=== PATIENT | female | born 1975 | race Hispanic/Latino ===

== ENCOUNTER 2017-05-04 16:56 | Inpatient (IN) | payer SELFPAY ==
[2017-05-04] MEDS ORDERED: ONDANSETRON HCL 4 MG/2 ML VIAL ONE (17:41)
[2017-05-04] MEDS ORDERED: INSULIN HUMULIN R 100 UNIT/ML 3ML ONE ×2 (18:19→19:51)
[2017-05-04 18:21] LABS: APPEARANCE,URINE Clear (CLEAR); BILIRUBIN,URINE Negative (NEGATIVE); COLOR,URINE Yellow (YELLOW); GLUCOSE, URINE (UA) >=1000 mg/dL (NEGATIVE); KETONES,URINE >=160 mg/dL (NEGATIVE); LEUKOCYTE ESTERASE ,URINE Negative (NEGATIVE); NITRATE,URINE Negative (NEGATIVE); OCCULT BLOOD,URINE Trace (NEGATIVE); PROTEIN,URINE POS 2+ (NEGATIVE); UROBILINOGEN,URINE 0.2 mg/dL (0.2-1.0)
[2017-05-04 18:28] LABS: HCG,QUAL RESULT NEGATIVE (NEGATIVE)
[2017-05-04 18:29] LABS: AMPHET/METH SCREEN,URINE NEGATIVE (NEGATIVE); BARBITURATE SCREEN, URINE NEGATIVE (NEGATIVE); BENZODIAZEPINES SCREEN,URINE NEGATIVE (NEGATIVE); CANNABINOID SCREEN,URINE NEGATIVE (NEGATIVE); COCAINE SCREEN,URINE NEGATIVE (NEGATIVE); OPIATE SCREEN,URINE NEGATIVE (NEGATIVE); PHENCYCLIDINE SCREEN,URINE NEGATIVE (NEGATIVE)
[2017-05-04 18:36] LABS: HEMATOCRIT 51.4 % (36-48); MEAN CORPUSCULAR HEMOGLOBIN 28.6 pg (27.0-33.0); MEAN CORPUSCULAR HGB CONC 32.4 g/dL (32.0-36.0); MEAN CORPUSCULAR VOLUME 88.2 fL (79-99); PLATELET COUNT (AUTO) 397 K/uL (130-400); RED BLOOD CELL COUNT(AUTO) 5.82 MIL/uL (4.00-5.50); RED CELL DISTRIBUTION WIDTH 13.2 % (11.0-15.5); WHITE BLOOD COUNT (AUTO) 23.4 K/uL (4.8-10.8)
[2017-05-04 19:53] LABS: BAND NEUTROPHILS % (MANUAL) 16 % (0-2); LYMPHOCYTES % (MANUAL) 8 % (22-44); MAN.DIFF COMMENT-IMPRESSION MANUAL DIFFERENTIAL; SEGMENTED NEUTROPHILS % 76 % (40-70)
[2017-05-04 20:01] LABS: BACTERIA,URINE Rare /HPF (None Seen); RBC,URINE 0-1 /HPF (0-1); WBC,URINE 0-1 /HPF (0-1); YEAST,URINE BUDDING Few /HPF (None Seen)
[2017-05-04 20:02] LABS: SQUAMOUS EPITHELIAL CELL,UR Few /LPF (0-2)
[2017-05-04 20:04] LABS: ABG BASE EXCESS -29.3 mmol/L (-2.0-3.0); ABG HCO3 2.8 mmol/L (21.0-28.0); ABG OXYGEN SATURATION 96.2 % (95.0-99.0); ABG PCO2 < 18 mmHg (32-45)
[2017-05-04] MEDS ORDERED: SODIUM BICARB 50MEQ 50ML VIAL ONE (20:11)
[2017-05-04 20:22] LABS: ALANINE AMINOTRANSFERASE 22 U/L (12-78); ALBUMIN 4.2 g/dL (3.5-5.0); AMYLASE 21 U/L (25-115); ASPARTATE AMINOTRANSFERASE 17 U/L (10-37); BILIRUBIN,TOTAL 0.4 mg/dL (0.2-1.0); CHLORIDE 102 mmol/L (101-111); CREATINE KINASE MB < 0.5 ng/mL (0.5-3.6); CREATINE KINASE, TOTAL 24 U/L (21-232); CREATININE 1.3 mg/dL (0.5-1.5); GLOMERULAR FILTR. RATE CALC 48 mL/min (>60); LIPASE 158 U/L (114-286); POTASSIUM 5.1 mmol/L (3.5-5.1); SODIUM SERUM 138 mmol/L (136-145); TOTAL PROTEIN, SERUM 8.7 g/dL (6.0-8.3); UREA NITROGEN, BLOOD 23 mg/dL (7-18)
[2017-05-04 20:25] LABS: CARBON DIOXIDE 7 mmol/L (21-32); GLUCOSE,RANDOM 416 mg/dL (70-105)
[2017-05-04] MEDS ORDERED: DEXTROSE 50%-WATER 50 ML DISP.SYRIN IV PRN (21:45)
[2017-05-04] MEDS ORDERED: INSULIN IV SS1 SQ PRN ×2 (21:45)
[2017-05-04] MEDS ORDERED: GLUCAGON 1MG KIT 1 MG ML IM PRN (21:45)
[2017-05-04] MEDS ORDERED: ACETAMINOPHEN-CODEINE 300/30MG TAB ONE (23:58)
[2017-05-05 00:25] LABS: CREATININE 1.3 mg/dL (0.5-1.5); POTASSIUM 5.2 mmol/L (3.5-5.1)
[2017-05-05] MEDS ORDERED: SODIUM CHLORIDE 0.9% 1000ML 1,000 ML IV ONE ×2 (01:18→07:39)
[2017-05-05] MEDS ORDERED: ZOSYN 3.375GM+NS 50ML 50 ML IV ONE ×2 (01:18→09:03)
[2017-05-05] MEDS: SODIUM CHLORIDE 0.9% 1000ML 1,000 ML IV SCH ×3 (02:08→18:08)
[2017-05-05] MEDS ORDERED: ACETAMINOPHEN-CODEINE 300/30MG TAB PO PRN (02:15)
[2017-05-05] MEDS ORDERED: HYDRALAZINE HCL 20 MG/ML VIAL IV PRN (02:15)
[2017-05-05] MEDS ORDERED: ONDANSETRON HCL 4 MG/2 ML VIAL IV PRN (02:15)
[2017-05-05] MEDS ORDERED: ACETAMINOPHEN 325 MG TAB PO PRN (02:15)
[2017-05-05] MEDS ORDERED: VANCOMYCIN 1GM+NS 250ML 250 ML IV ONE (02:40)
[2017-05-05 05:12] LABS: CREATININE 1.2 mg/dL (0.5-1.5)
[2017-05-05 05:43] LABS: ABG BASE EXCESS -22.4 mmol/L (-2.0-3.0); ABG HCO3 3.8 mmol/L (21.0-28.0); ABG OXYGEN SATURATION 97.8 % (95.0-99.0); ABG PCO2 < 18 mmHg (32-45)
[2017-05-05] MEDS ORDERED: SODIUM BICARB 50MEQ 50ML VIAL ONE (06:05)
[2017-05-05] MEDS ORDERED: INSULIN HUMULIN R 100 UNIT/ML 3ML ONE (07:40)
[2017-05-05] MEDS: PANTOPRAZOLE SODIUM 40 MG TABLET.DR PO SCH (09:00)
[2017-05-05] MEDS: ENOXAPARIN SODIUM 30 MG/0.3 ML SQ SCH (09:00)
[2017-05-05] MEDS ORDERED: ENOXAPARIN SODIUM 30 MG/0.3 ML SQ ONE (09:02)
[2017-05-05] MEDS ORDERED: PANTOPRAZOLE SODIUM 40 MG TABLET.DR PO ONE (09:03)
[2017-05-05] MEDS ORDERED: DEXTROSE 5 % AND 0.9 % NACL 1,000 ML IV ONE (09:27)
[2017-05-05 10:04] LABS: CREATININE 0.9 mg/dL (0.5-1.5); POTASSIUM 3.7 mmol/L (3.5-5.1)
[2017-05-05] MEDS ORDERED: KETOROLAC TROMETHAMINE 60 MG/2 ML VIAL ONE (10:08)
[2017-05-05] MEDS ORDERED: ACETAMINOPHEN 325 MG TAB ONE ×2 (10:08→10:39)
[2017-05-05 12:15] LABS: ABG BASE EXCESS -16.2 mmol/L (-2.0-3.0); ABG HCO3 8.1 mmol/L (21.0-28.0); ABG OXYGEN SATURATION 96.6 % (95.0-99.0); ABG PCO2 18 mmHg (32-45)
[2017-05-05 12:38] LABS: POTASSIUM 3.7 mmol/L (3.5-5.1)
[2017-05-05 16:27] LABS: POTASSIUM 2.9 mmol/L (3.5-5.1)
[2017-05-05] MEDS ORDERED: DEXTROSE 5%-WATER 1,000 ML IV ONE (16:39)
[2017-05-05 17:00] VITALS: BP 98/52
[2017-05-05] MEDS ORDERED: METF500T6 PO (17:21)
[2017-05-05] MEDS ORDERED: INSLAN SQ (17:21)
[2017-05-05] MEDS ORDERED: INSU100C14 SQ (17:21)
[2017-05-05] MEDS ORDERED: GLIP5TAB11 PO (17:21)
[2017-05-05 19:00] VITALS: BP 98/51
[2017-05-05] MEDS ORDERED: LIDOCAINE HCL-MPF 1% 2ML VIAL IVP PRN (19:45)
[2017-05-05] MEDS ORDERED: POTASSIUM CHLORIDE 10% ELIXIR 20 MEQ/15 ML UDCUP PO PRN (19:45)
[2017-05-05] MEDS ORDERED: POTASSIUM CHLORIDE 20MEQ/100ML 100 ML IV PRN (19:45)
[2017-05-05 20:00] VITALS: BP 94/47
[2017-05-05] MEDS: POTASSIUM CHLORIDE 20 MEQ ERTAB PO PRN ×3 (20:31→23:53)
[2017-05-05] MEDS: DEXTROSE 5 % AND 0.9 % NACL 1,000 ML IV SCH (20:32)
[2017-05-05 21:00] VITALS: BP 98/55
[2017-05-05 22:00] VITALS: BP 92/59
[2017-05-05 23:00] VITALS: BP 99/56
[2017-05-06] VITALS (19 sets, daily range): BP systolic 91–110; BP diastolic 46–73
[2017-05-06] MEDS: DEXTROSE 5 % AND 0.9 % NACL 1,000 ML IV SCH (01:40)
[2017-05-06] MEDS: POTASSIUM CHLORIDE 20 MEQ ERTAB PO PRN ×6 (01:42→16:36)
[2017-05-06 04:16] LABS: CREATININE 0.8 mg/dL (0.5-1.5); MAGNESIUM 1.5 mg/dL (1.80-2.40); POTASSIUM 3.2 mmol/L (3.5-5.1)
[2017-05-06] MEDS ORDERED: MAGNESIUM 2GM PREMIX 50ML 50 ML IV SCH (06:15)
[2017-05-06] MEDS ORDERED: DEXTROSE 5 %-0.45 % NACL 1,000 ML IV ONE (06:18)
[2017-05-06] MEDS: DEXTROSE 5 %-0.45 % NACL 1,000 ML IV SCH ×3 (06:23→16:28)
[2017-05-06] MEDS: PANTOPRAZOLE SODIUM 40 MG TABLET.DR PO SCH (08:36)
[2017-05-06] MEDS: ENOXAPARIN SODIUM 30 MG/0.3 ML SQ SCH (08:38)
[2017-05-06 10:23] LABS: ABG BASE EXCESS -9.4 mmol/L (-2.0-3.0); ABG HCO3 14.7 mmol/L (21.0-28.0); ABG OXYGEN SATURATION 96.4 % (95.0-99.0); ABG PCO2 28 mmHg (32-45)
[2017-05-06 11:22] LABS: CREATININE 0.7 mg/dL (0.5-1.5); POTASSIUM 3.8 mmol/L (3.5-5.1)
[2017-05-06 11:26] LABS: HEMATOCRIT 32.6 % (36-48); MEAN CORPUSCULAR HEMOGLOBIN 29.1 pg (27.0-33.0); MEAN CORPUSCULAR HGB CONC 35.4 g/dL (32.0-36.0); MEAN CORPUSCULAR VOLUME 82.2 fL (79-99); NUCLEATED RED BLOOD CELLS 0.1 % (0.0-0.19); PLATELET COUNT (AUTO) 194 K/uL (130-400); RED BLOOD CELL COUNT(AUTO) 3.97 MIL/uL (4.00-5.50); RED CELL DISTRIBUTION WIDTH 13.2 % (11.0-15.5); WHITE BLOOD COUNT (AUTO) 6.8 K/uL (4.8-10.8)
[2017-05-06 12:02] LABS: LYMPHOCYTES % (MANUAL) 28 % (22-44); MAN.DIFF COMMENT-IMPRESSION MANUAL DIFFERENTIAL; MONOCYTES % (MANUAL) 2 % (2-9); PLATELET MORPHOLOGY COMMENT ADEQUATE; SEGMENTED NEUTROPHILS % 70 % (40-70)
[2017-05-06 17:10] LABS: CREATININE 0.7 mg/dL (0.5-1.5); POTASSIUM 3.8 mmol/L (3.5-5.1)
[2017-05-06] MEDS: INSULIN GLARGINE 100 UNITS/ML 10 ML VIAL SQ SCH ×2 (18:22→19:15)
[2017-05-06] MEDS: INSULIN HUMULIN R 100 UNIT/ML 3ML SQ SCH ×2 (19:14→20:50)
[2017-05-07 03:15] VITALS: BP 106/62
[2017-05-07 05:20] LABS: HEMATOCRIT 33.9 % (36-48); MEAN CORPUSCULAR HEMOGLOBIN 29.1 pg (27.0-33.0); MEAN CORPUSCULAR VOLUME 80.9 fL (79-99); PLATELET COUNT (AUTO) 219 K/uL (130-400); RED BLOOD CELL COUNT(AUTO) 4.19 MIL/uL (4.00-5.50); RED CELL DISTRIBUTION WIDTH 13.3 % (11.0-15.5); WHITE BLOOD COUNT (AUTO) 5.4 K/uL (4.8-10.8)
[2017-05-07 05:21] LABS: CREATININE 0.6 mg/dL (0.5-1.5); POTASSIUM 3.2 mmol/L (3.5-5.1)
[2017-05-07 05:35] LABS: BAND NEUTROPHILS % (MANUAL) 7 % (0-2); EOSINOPHILS % (MANUAL) 3 % (1-6); LYMPHOCYTES % (MANUAL) 43 % (22-44); MAN.DIFF COMMENT-IMPRESSION MANUAL DIFFERENTIAL; MONOCYTES % (MANUAL) 3 % (2-9); PLATELET MORPHOLOGY COMMENT ADEQUATE; SEGMENTED NEUTROPHILS % 44 % (40-70)
[2017-05-07] MEDS: POTASSIUM CHLORIDE 20 MEQ ERTAB PO PRN (05:35)
[2017-05-07] MEDS: INSULIN HUMULIN R 100 UNIT/ML 3ML SQ SCH ×2 (06:01→11:23)
[2017-05-07] MEDS: INSULIN GLARGINE 100 UNITS/ML 10 ML VIAL SQ SCH (06:03)
[2017-05-07 07:00] VITALS: BP 98/63
[2017-05-07] MEDS: PANTOPRAZOLE SODIUM 40 MG TABLET.DR PO SCH (08:36)
[2017-05-07] MEDS: ENOXAPARIN SODIUM 30 MG/0.3 ML SQ SCH (08:37)
[2017-05-07 11:00] VITALS: BP 101/65
== END 2017-05-07 13:35 | disposition home or self-care (01) | DRG 871 ==
LOC: EDH 16:56 → EDHIP 16:57 → 2CH 05-05 16:28
PROVIDERS: ADMIT Family Medicine; ATTEND Family Medicine
DX: A41.9 Sepsis, unspecified organism (principal); E10.10 Type 1 diabetes mellitus with ketoacidosis without coma; Z79.4 Long term (current) use of insulin; Z90.49 Acquired absence of other specified parts of digestive tract
CPT/HCPCS: 36415; 36600; 80048; 80053; 80305; 81001; 81025; 82009; 82150; 82550; 82553; 82803; 82948; 83690; 83735; 84100; 84484; 85025; 93005; 99291; J1650; J1815; J1885; J2405; J2543; J3370; J3475; J3480; J3490; J7030; J7042; J7070